=== PATIENT | female | born 1990 | race Two or more races ===

== ENCOUNTER 2022-11-22 18:24 | Emergency (ER) | payer SELFPAY ==
[~2022-11-22] VITALS: Ht 167.6 cm; Wt 76.0 kg
[2022-11-22 19:19] LABS: COVID AG,FIA SOURCE NASAL SWAB
[2022-11-22 19:42] LABS: RAPID GROUP A STREP NEGATIVE (NEGATIVE)
[2022-11-22 19:52] LABS: INFLUENZA TYPE A NEGATIVE FOR TYPE A (NEGATIVE); INFLUENZA TYPE B NEGATIVE FOR TYPE B (NEGATIVE)
[2022-11-22 20:09] VITALS: BP 103/60; PULSE 66; RESP 16; TEMP 98.2
== END 2022-11-22 20:32 | disposition home or self-care (01) ==
LOC: EMS 18:25
DX: J02.8 Acute pharyngitis due to other specified organisms (principal); L30.9 Dermatitis, unspecified; Z20.822 Contact with and (suspected) exposure to COVID-19
CPT/HCPCS: 87430; 87804; 99283